=== PATIENT | male | born 1975 | race Caucasian/White ===

== ENCOUNTER → 2017-08-29 | Outpatient (CLI) | payer MEDICAID | END | disposition home or self-care (01) | LOC: ROC 08-15 09:38 | PROVIDERS: ATTEND Radiology Radiation Oncology | DX: D49.6 Neoplasm of unspecified behavior of brain (principal); F32.9 Major depressive disorder, single episode, unspecified; E78.00 Pure hypercholesterolemia, unspecified; Z85.841 Personal history of malignant neoplasm of brain | CPT/HCPCS: 99215; G0463 ==

== ENCOUNTER → 2017-09-11 | Outpatient (CLI) | payer MEDICAID ==
[~2017-09-11] MED LIST: GADOBUTROL 7.5 MMOL/7.5 ML PFS ONE
== END | disposition home or self-care (01) ==
LOC: CFH 14:13
PROVIDERS: ATTEND Radiology Radiation Oncology
DX: D43.2 Neoplasm of uncertain behavior of brain, unspecified (principal)
CPT/HCPCS: 70553; A9585

== ENCOUNTER → 2018-03-12 | Outpatient (CLI) | payer MEDICAID | END | disposition home or self-care (01) | LOC: CFH 10:32 | PROVIDERS: ATTEND Radiology Radiation Oncology | DX: G93.89 Other specified disorders of brain (principal) | CPT/HCPCS: 70553; A9585 ==

== ENCOUNTER → 2018-03-26 | Outpatient (CLI) | payer MEDICAID | END | disposition home or self-care (01) | LOC: ROC 08:19 | PROVIDERS: ATTEND Radiology Radiation Oncology | DX: Z08 Encounter for follow-up examination after completed treatment for malignant neoplasm (principal); D43.2 Neoplasm of uncertain behavior of brain, unspecified | CPT/HCPCS: 99213; G0463 ==

== ENCOUNTER → 2018-09-09 | Outpatient (CLI) | payer MEDICAID | END | disposition home or self-care (01) | LOC: CFH 10:34 | PROVIDERS: ATTEND Radiology Radiation Oncology | DX: D43.1 Neoplasm of uncertain behavior of brain, infratentorial (principal) | CPT/HCPCS: 70553; A9585 ==